=== PATIENT | male | born 1945 | race Caucasian/White ===

== ENCOUNTER 2018-08-19 13:05 | Emergency (ER) | payer BC, MEDICARE ==
[2018-08-19] MEDS ORDERED: Sodium Chloride 0.9% 500 ML IV ONE ×2 (13:59→15:00)
[2018-08-19] MEDS ORDERED: HYDROmorphone 2 MG/ML SDV IVPUSH ONE (14:00)
--- NOTE | 2018-08-19 14:06 | EDM.PDOC ---
ED HPI GENERAL MEDICAL PROBLEM - General Chief Complaint: Genitourinary Problem Stated Complaint: BLOOD IN URINE,LOW BACK PAIN,LEFT LEG PAIN Time Seen by Provider: 08/19/18 14:01 Source of Information: Reports: Patient History Limitations: Reports: No Limitations - History of Present Illness INITIAL COMMENTS - FREE TEXT/NARRATIVE: Presents with progressively worsening left low back pain radiating to left leg with weakness since 08/08/18. Developed hematuria the day prior, but this resolved. Has a h/o kidney stones. Denies N/V. Also has a h/o lumbar disc disease. Onset Date: 08/08/18 Location: Reports: Back Quality: Reports: Dull Severity: Moderate L lower back Pain Score (Numeric/FACES): 6 - Related Data Allergies Allergy/AdvReac Type Severity Reaction Status Date / Time plague vaccine Allergy Cannot Verified 08/19/18 13:46 Remember typhoid vaccine Allergy Cannot Verified 08/19/18 13:46 Remember typhus vaccine Allergy Cannot Verified 08/19/18 13:46 Remember yellow fever vaccine live Allergy Cannot Verified 08/19/18 13:46 Remember Home Meds: Home Meds Acetaminophen/HYDROcodone [[place] 325-5 MG] 1 tab PO Q6H PRN #15 tab 08/19/18 [Rx ] Aspirin [Ecotrin] 325 mg PO DAILY 08/19/18 [History] Carvedilol 12.5 mg BID 08/19/18 [History] Cefuroxime Axetil [Ceftin] 500 mg PO BID #14 tablet 08/19/18 [Rx] Isosorbide Mononitrate [Imdur] 60 mg PO BEDTIME 08/19/18 [History] Isosorbide Mononitrate [Imdur] 120 mg PO DAILY 08/19/18 [History] Lisinopril 20 mg BEDTIME 08/19/18 [History] Niacin [Niacin ER] 500 mg PO BID 08/19/18 [History] Nitroglycerin [Nitrostat] 0.4 mg SL ASDIRECTED PRN 08/19/18 [History] metFORMIN HCl [Metformin HCl] 500 mg BID 08/19/18 [History] predniSONE [Prednisone] 40 mg PO 10 5 Days tablet 08/19/18 [Rx] Past Medical History Cardiovascular History: Reports: Bypass, CAD, Hypertension, [place], Stents Genitourinary History: Reports: Renal Calculus Endocrine/Metabolic History: Reports: Diabetes, Type II - Past Surgical History Cardiovascular Surgical History: Reports: AAA Repair Social & Family History - Tobacco Use Smoking Status *Q: Current Every Day Smoker Tobacco Use Within Last Twelve Months: Cigarettes - Alcohol Use Alcohol Use History: No ED ROS GENERAL - Review of Systems Review Of Systems: See Below Constitutional: Reports: No Symptoms HEENT: Reports: No Symptoms Respiratory: Reports: No Symptoms Cardiovascular: Reports: No Symptoms Endocrine: Reports: No Symptoms GI/Abdominal: Reports: No Symptoms : Reports: Hematuria Musculoskeletal: Reports: Back Pain (left lower) Skin: Reports: No Symptoms Neurological: Reports: Difficulty Walking (left leg weakness, no numbness) Psychiatric: Reports: No Symptoms Hematologic/Lymphatic: Reports: No Symptoms ED EXAM,LOWER BACK PAIN/INJURY - Physical Exam Exam: See Below Exam Limited By: No Limitations General Appearance: Alert, WD/WN, No Apparent Distress Ears: Normal External Exam Throat/Mouth: No Airway Compromise Head: Atraumatic, Normocephalic Neck: Full Range of Motion Respiratory/Chest: No Respiratory Distress, Lungs Clear, Normal Breath Sounds Cardiovascular: Regular Rate, Rhythm, No Murmur GI/Abdominal: Soft, Non-Tender, No Distention Back Exam: Other (Left lower back tenderness). No: CVA Tenderness (R), CVA Tenderness (L) Neurological: Alert, Other (Mild LLE weakness, sensation intact) DTR - Lower Extremities: 1+: Knee (R), 2+: Knee (L) Psychiatric: Normal Affect, Normal Mood Skin Exam: Warm, Dry, Intact Course - Vital Signs Last Recorded V/S: Last Vital Signs Temp 36.3 C 08/19/18 13:33 Pulse 73 08/19/18 15:10 Resp 18 08/19/18 15:10 BP 116/74 08/19/18 15:10 Pulse Ox 100 08/19/18 15:10 - Orders/Labs/Meds Orders: Active Orders 24 hr Category Date Time Status Ang Abdomen [CT] Stat Exams 08/19/18 15:43 Taken Ang Chest [CT] Stat Exams 08/19/18 15:31 Taken CULTURE URINE [RM] Stat Lab 08/19/18 14:14 Received Sodium Chloride 0.9% [Saline Flush] Med 08/19/18 13:59 Active 10 ml FLUSH ASDIRECTED PRN Saline Lock Insert [OM.PC] Routine Oth 08/19/18 13:59 Ordered Medication Orders Sodium Chloride (Saline Flush) 10 ml FLUSH ASDIRECTED PRN PRN Reason: Keep Vein Open Last Admin: 08/19/18 16:42 Dose: 10 ml Admin: 08/19/18 15:06 Dose: 10 ml Labs: Laboratory Tests 08/19/18 08/19/18 08/19/18 Range/Units 14:14 14:17 14:17 WBC 10.2 (4.5-12.0) X10-3/uL RBC 5.05 (4.30-5.75) x10(6)uL Hgb 15.5 (11.5-15.5) g/dL Hct 46.6 (30.0-51.3) % MCV 92.2 (80-96) fL MCH 30.7 (27.7-33.6) pg MCHC 33.3 (32.2-35.4) g/dL RDW 13.7 (11.5-15.5) % Plt Count 195 (125-369) X10(3)uL MPV 8.8 (7.4-10.4) fL Neut % (Auto) 68.6 (46-82) % Lymph % (Auto) 23.0 (13-37) % [place] % (Auto) 4.4 (4-12) % Eos % (Auto) 3 (1.0-5.0) % Baso % (Auto) 1 (0-2) % Neut # (Auto) 7.1 (1.6-8.3) # Lymph # (Auto) 2.3 (0.6-5.0) # [place] # (Auto) 0.4 (0.0-1.3) # Eos # (Auto) 0.3 (0.0-0.8) # Baso # (Auto) 0.1 (0.0-0.2) # PT (8.7-11.1) INR (0.89-1.13) Sodium 138 (135-145) mmol/L Potassium 4.9 (3.5-5.3) mmol/L Chloride 102 (100-110) mmol/L Carbon Dioxide 27 (21-32) mmol/L BUN 29 H (7-18) mg/dL Creatinine 1.4 H (0.70-1.30) mg/dL Est Cr Clr Drug Dosing 49.25 mL/min Estimated GFR (MDRD) 50 L (>60) BUN/Creatinine Ratio 20.7 H (9-20) Glucose 107 (80-116) mg/dL Calcium 9.2 (8.6-10.2) mg/dL Total Bilirubin 0.5 (0.1-1.3) mg/dL AST 21 (5-25) IU/L ALT 15 (12-36) U/L Alkaline Phosphatase 89 (56-112) IU/L Total Protein 7.8 (6.0-8.0) g/dL Albumin 3.6 (3.2-4.6) g/dL Globulin 4.2 g/dL Albumin/Globulin Ratio 0.9 Urine Color Yellow (YELLOW) Urine Appearance Cloudy (CLEAR) Urine pH 8.0 H (5.0-6.5) Ur Specific [place] 1.010 (1.010-1.025) Urine Protein Negative (NEGATIVE) mg/dL Urine Glucose (UA) Normal (NEGATIVE) mg/dL Urine Ketones Negative (NEGATIVE) mg/dL Urine Occult Blood Moderate H (NEGATIVE) Urine Nitrite Negative (NEGATIVE) Urine Bilirubin Negative (NEGATIVE) Urine Urobilinogen Normal (NEGATIVE) mg/dL Ur Leukocyte Esterase Large H (NEGATIVE) Urine RBC 10-20 H (0) Urine WBC 50-75 H (0) Ur Squamous Epith Cells Occasional (NS,R,O) Triple Phos Crystals Moderate H (NS) Urine Bacteria Many H (NS) 08/19/18 Range/Units 14:17 WBC (4.5-12.0) X10-3/uL RBC (4.30-5.75) x10(6)uL Hgb (11.5-15.5) g/dL Hct (30.0-51.3) % MCV (80-96) fL MCH (27.7-33.6) pg MCHC (32.2-35.4) g/dL RDW (11.5-15.5) % Plt Count (125-369) X10(3)uL MPV (7.4-10.4) fL Neut % (Auto) (46-82) % Lymph % (Auto) (13-37) % [place] % (Auto) (4-12) % Eos % (Auto) (1.0-5.0) % Baso % (Auto) (0-2) % Neut # (Auto) (1.6-8.3) # Lymph # (Auto) (0.6-5.0) # [place] # (Auto) (0.0-1.3) # Eos # (Auto) (0.0-0.8) # Baso # (Auto) (0.0-0.2) # PT 9.8 (8.7-11.1) INR 1.01 (0.89-1.13) Sodium (135-145) mmol/L Potassium (3.5-5.3) mmol/L Chloride (100-110) mmol/L Carbon Dioxide (21-32) mmol/L BUN (7-18) mg/dL Creatinine (0.70-1.30) mg/dL Est Cr Clr Drug Dosing mL/min Estimated GFR (MDRD) (>60) BUN/Creatinine Ratio (9-20) Glucose (80-116) mg/dL Calcium (8.6-10.2) mg/dL Total Bilirubin (0.1-1.3) mg/dL AST (5-25) IU/L ALT (12-36) U/L Alkaline Phosphatase (56-112) IU/L Total Protein (6.0-8.0) g/dL Albumin (3.2-4.6) g/dL Globulin g/dL Albumin/Globulin Ratio Urine Color (YELLOW) Urine Appearance (CLEAR) Urine pH (5.0-6.5) Ur Specific [place] (1.010-1.025) Urine Protein (NEGATIVE) mg/dL Urine Glucose (UA) (NEGATIVE) mg/dL Urine Ketones (NEGATIVE) mg/dL Urine Occult Blood (NEGATIVE) Urine Nitrite (NEGATIVE) Urine Bilirubin (NEGATIVE) Urine Urobilinogen (NEGATIVE) mg/dL Ur Leukocyte Esterase (NEGATIVE) Urine RBC (0) Urine WBC (0) Ur Squamous Epith Cells (NS,R,O) Triple Phos Crystals (NS) Urine Bacteria (NS) Meds: Medications Generic Name Dose Route Start Last Admin Trade Name Freq PRN Reason Stop Dose Admin Sodium Chloride 10 ml 08/19/18 13:59 08/19/18 16:42 Saline Flush FLUSH 10 ml ASDIRECTED PRN Administration Keep Vein Open Discontinued Medications Generic Name Dose Route Start Last Admin Trade Name Venessa PRN Reason Stop Dose Admin Ceftriaxone Sodium 1,000 mg 08/19/18 15:51 08/19/18 16:39 Rocephin IVPUSH 08/19/18 15:52 1,000 mg ONETIME ONE Administration Hydromorphone HCl 0.5 mg 08/19/18 14:00 Dilaudid IVPUSH 08/19/18 14:01 ONETIME ONE Sodium Chloride 500 mls @ 500 mls/hr 08/19/18 13:59 08/19/18 15:09 Normal Saline IV 08/19/18 14:58 Not Given .BOLUS ONE Sodium Chloride 500 mls @ 500 mls/hr 08/19/18 15:00 08/19/18 15:00 Normal Saline IV 08/19/18 15:59 500 mls/hr .BOLUS ONE Administration Iopamidol 100 ml 08/19/18 15:49 08/19/18 16:14 Isovue-370 (76%) IV 08/19/18 15:50 98 ml . DIRECTED ONE Administration - Radiology Interpretation Free Text/Narrative:: CT Abd/Pelvis w/o contrast: No ureteral calculi or obstructive uropathy. CTA Aorta: Increased diameter of AAA to 45mm (compared to [address]mm [address]), no rupture or dissection. Graft is kinked. There is flow distally to the right external iliac, right external iliac is occluded (no change 2008). - Re-Assessments/Exams Free Text/Narrative Re-Assessment/Exam: 08/19/18 17:[address] Torrez ([facility] Vascular Surgeon), recommends outpatient follow up at the [facility] within 1 week. Departure - Departure Time of Disposition: 17:39 Disposition: Home, Self-Care 01 Condition: Good Clinical Impression: UTI, Urinary tract infectious disease, Sciatica of left side Abdominal aortic aneurysm Qualifiers: Presence of rupture: without rupture Qualified Code(s): I71.4 - Abdominal aortic aneurysm, without rupture - Discharge Information *PRESCRIPTION DRUG MONITORING PROGRAM REVIEWED*: Yes *COPY OF PRESCRIPTION DRUG MONITORING REPORT IN PATIENT AURA: Not Applicable Prescriptions: Acetaminophen/HYDROcodone [[place] 325-5 MG] 1 tab PO Q6H PRN #15 tab PRN Reason: Pain Cefuroxime Axetil [Ceftin] 500 mg PO BID #14 tablet predniSONE [Prednisone] 40 mg PO 10 5 Days tablet Instructions: Abdominal Aortic Aneurysm, [id number], Sciatica, Urinary Tract Infection, Adult, [id number] Referrals: Luis Felipe Escobar MD [Primary Care Provider] - Forms: ED Department Discharge Additional Instructions: Hold Glucophage for 48 hours. Follow up at [facility] in 1 week. Fill prescriptions for [place], Ceftin, and Prednisone and take as directed. Follow up with your primary physician in 2-3 days. Return to the ER if symptoms worsen. - My Orders Last 24 Hours: My Active Orders 08/19/18 13:59 Sodium Chloride 0.9% [Saline Flush] 10 ml FLUSH ASDIRECTED PRN Saline Lock Insert [OM.PC] Routine 08/19/18 14:14 CULTURE URINE [RM] Stat 08/19/18 15:31 Ang Chest [CT] Stat 08/19/18 15:43 Ang Abdomen [CT] Stat - Assessment/Plan Last 24 Hours: My Active Orders 08/19/18 13:59 Sodium Chloride 0.9% [Saline Flush] 10 ml FLUSH ASDIRECTED PRN Saline Lock Insert [OM.PC] Routine 08/19/18 14:14 CULTURE URINE [RM] Stat 08/19/18 15:31 Ang Chest [CT] Stat 08/19/18 15:43 Ang Abdomen [CT] Stat
[2018-08-19] MEDS: Sodium Chloride 0.9% 10 ML Syringe FLUSH PRN ×2 (15:06→16:42)
--- NOTE | 2018-08-19 15:45 | CT ---
INDICATION: Back pain, hematuria. CT ABDOMEN AND PELVIS WITHOUT CONTRAST: Spiral 1.25 mm axial sections were obtained through the abdomen and pelvis with sagittal and coronal reconstructions with renal calculus protocol. Examination was obtained 2017 - no comparisons are available. Total exam DLP = 985.12 mGy-cm. Lower lung anderson and pleural spaces visualized appeared normal. The heart appeared mildly enlarged. Coronary artery calcifications are noted. Tiny low density lesions in the liver likely are benign cystic structures. Punctate calcifications in the liver likely represent evidence of previous histoplasmosis. No gallstones were demonstrated. An abdominal aortic aneurysm measuring 4.8 cm is noted with aortoiliac bypass graft in place. No definite leakage is seen. Contrast enhanced examination may be warranted for further evaluation, as felt to be clinically necessary. Calcifications are fairly extensive in the arterial system. Renal cortical scarring is noted, mild on the right, severe on the left, with marked thinning of the renal cortex on the left, producing an atretic appearance of the left kidney. Multiple calculi are noted in both kidneys, much more prominently on the left but without definite obstructive uropathy. Iodinated contrast examination may be helpful for further evaluation, as felt to be clinically necessary in this patient with hematuria. No definite bladder lesion was seen, although thickening of the urinary bladder wall could be on the basis of cystitis or trabeculation. Degenerative changes and disk disease are noted at L2 through S1, least prominently at L2-3 with bulging disks most notable at L3-4, L4-5, and L5-S1, the latter two more prominently. Narrowing of neural foramina at those levels is seen up to the L4-5 neural foramen level. Herniated nucleus pulposus could be present at the L4-5 level centrally and to the left, impinging on the nerve root exiting on the left at L4-5. There is a moderate dextroconcave scoliosis of the lumbar spine. Degenerative changes are noted at the right hip joint of moderate degree with joint space narrowing craniolaterally and medially. Sigmoid diverticulosis is noted without definite evidence of diverticulitis. No evidence of bowel obstruction or free air was seen. The appendix appeared normal and is visualized on axial images #226 through # 260. The liver showed multiple tiny low density lesions likely representing tiny cystic structures. This should be correlated clinically, however. Punctate calcifications in the liver likely represent previous granulomatous disease. Calcific or metallic densities around the gastric body are noted, etiology indeterminate, question postsurgical change. The presence of calcifications is noted in the aorta, superior mesenteric artery, renal arteries, iliac and femoral arteries. IMPRESSION: 1. Aortic aneurysm with stenting. 2. Renal calcinosis, most severe on the left with renal cortical scarring much more severe on the left. Atretic appearing left kidney but no definite obstructive uropathy. 3. Degenerative changes, disk disease, scoliosis, narrowing of neural foramina in lumbosacral spine, as noted above, with bulging disks most prominent at L4-5 , L5-S1. Herniated nucleus pulposus could be present at the L4-5 level centrally and to the left, impinging on the nerve root exiting on the left at L4 -5. Report was called to Dr. Wright at 1520 hours on 08/19/2018. [facility]
[2018-08-19] MEDS ORDERED: Iopamidol 755 Mg/ML 100 ML Bottle IV ONE (15:49)
[2018-08-19] MEDS ORDERED: cefTRIAXone 1,000 MG VIAL IVPUSH ONE (15:51)
[2018-08-19] MEDS ORDERED: predniSONE 20 MG Tab PO ONE (17:46)
--- NOTE | 2018-08-20 10:28 | CT ---
INDICATION: Back pain. COMPUTERIZED TOMOGRAPHY ANGIOGRAPHY OF THE CHEST FOR AORTA: TECHNIQUE: Spiral 1.25 mm axial sections were obtained through the chest, abdomen, and most of the pelvis with sagittal and coronal reconstructions, 08/19. No comparisons were available at the time of dictation. Total exam DLP = 1,232.37 mGy-cm. FINDINGS: Examination of the chest by CT with contrast, as noted above, reveals extensive atherosclerotic changes in the aorta with irregular plaque, some of it calcified. There may be ulcerations with marked irregularity present. Along the ascending aorta on axial image #64, sagittal image #65, and coronal image #66, there is suggestion of a limited area of dissection apparently into the plaque in that area. Another minimal area of dissection, most likely in an ulcer, is seen along the posterior proximal abdominal aorta on axial images #135 through #137. The heart is enlarged with coronary artery disease. An active infiltrate or effusion was not identified in the lungs. No mediastinal mass was identified. No pericardial effusion was seen. Mediastinal lymphadenopathy is mild and nonspecific. IMPRESSION: 1. Two areas of possible minimal dissection are noted, one in the ascending and one in the distal descending thoracic aorta. 2. Diffuse atherosclerotic changes. No thoracic aortic aneurysm. Ulcerations in plaques may be present. Report was given in person to Dr. Wright at 1710 hours on 08/19/2018. [facility]
--- NOTE | 2018-08-20 10:47 | CT ---
INDICATION: Abdominal pain. COMPUTERIZED TOMOGRAPHY ANGIOGRAPHY OF THE ABDOMEN AND UPPER TWO THIRDS OF THE PELVIS FOR AORTA: TECHNIQUE: Spiral 1.25 mm axial sections were obtained through the chest, abdomen, and most of the pelvis with sagittal and coronal reconstructions, 08/19. No comparisons were available at the time of dictation. Total exam DLP = 1,232.37 mGy-cm. FINDINGS: Examination of the abdomen and upper two thirds of the pelvis was obtained by CT with contrast, as noted above, and revealed an area of aneurysmal dilatation of the aorta, extending from the renal arteries inferiorly to the bifurcation, measuring approximately 13 cm craniocaudad by approximately 40 mm anterior-posterior. There is a bypass stent, which appears to be functioning, from the midportion of the aneurysm and extending into the common iliac on the right. It appears to be fully patent on the right. The left common iliac artery is not contrast-enhancing, suggesting obstruction at the bifurcation of the left common iliac artery. An area of aneurysmal dilatation extends above the stent approximately 49 mm craniocaudad to the renal arteries. The right renal artery shows evidence of narrowing of moderate to moderately severe degree near its origin. What appears to be a left renal artery also shows evidence of stenosis with relatively minimal flow to the left kidney. No definite dissection or leakage is identified at the aneurysm or stent site. Comparison studies were obtained from [facility] dated 05/18/2009 and now show aneurysmal dilatation of the aorta above the level of the previously stented aneurysm, extending more cranially to the level of the renal arteries. The aneurysm ends at that point. The graft also appears to have lost its tether at its proximal-most end, and its proximal-most portion is now located approximately 52 mm from the right renal artery versus approximately 9.8 mm from the renal artery on the previous study of 2008. Contrast bulges into the mural thrombus - plaque on the left. IMPRESSION: Aortic aneurysm stented on previous CT scan of 2008. The aneurysm has increased in size. The stent has apparently dislodged. It remains patent, however, with flow into the common iliac on the right. Ulcerations in plaques. No definite leakage or dissection identified. There is , however, noted occlusion of the common iliac on the left proximally. Report was given in person to Dr. Wright at 1710 hours on 08/19/2018. [facility]
== END 2018-08-19 18:02 | disposition home or self-care (01) ==
LOC: FB.ED 13:05
DX: N39.0 Urinary tract infection, site not specified (principal); M54.42 Lumbago with sciatica, left side; I71.4 Abdominal aortic aneurysm, without rupture; E11.9 Type 2 diabetes mellitus without complications; I10 Essential (primary) hypertension; F17.210 Nicotine dependence, cigarettes, uncomplicated; I25.2 Old myocardial infarction; Z88.7 Allergy status to serum and vaccine
CPT/HCPCS: 71275; 74175; 74176; 80053; 81001; 85025; 85610; 87086; 87088; 87186; 96361; 96374; 99283; A9270-GY; J0696; J7030; J7050; Q9967

== ENCOUNTER 2025-03-15 14:57 | Inpatient (IN) | payer MEDICARE ==
[2025-03-15 15:43] LABS: BASOPHILS PERCENT AUTO 0.4 % (0.3-3.8); EOSINOPHILS PERCENT AUTO 0.1 % (0.1-6.8); HEMATOCRIT 43.5 % (38.3-50.1); HEMOGLOBIN 14.5 g/dL (12.9-17.7); LYMPHOCYTES ABSOLUTE AUTO 1.1 x10-3/uL (0.5-4.5); LYMPHOCYTES PERCENT AUTO 10.5 % (15.8-45.3); MEAN CORPUSCULAR HEMOGLOBIN 30.3 pg (27.0-33.3); MEAN CORPUSCULAR HGB CONC 33.4 g/dL (28.7-35.3); MEAN CORPUSCULAR VOLUME 90.9 fL (80.8-98.7); MEAN PLATELET VOLUME 8.9 fL (6.7-11.0); MONOCYTES ABSOLUTE AUTO 0.7 x10-3/uL (0.0-1.2); MONOCYTES PERCENT AUTO 6.6 % (5.5-15.2); NEUTROPHILS ABSOLUTE AUTO 8.5 x10-3/uL (1.7-6.9); NEUTROPHILS PERCENT AUTO 82.4 % (40.3-71.8); PLATELET COUNT,PLT 159 x10(3)uL (117-477); RED BLOOD CELL COUNT 4.79 x10(6)uL (3.90-5.90); RED CELL DISTRIBUTION WIDTH 16.2 % (12.4-15.0); WHITE BLOOD CELL COUNT,WBC 10.3 x10-3/uL (3.2-10.1)
[2025-03-15 15:44] LABS: BLOOD UREA NITROGEN,BUN 49 mg/dL (7-18); BUN/CREATININE RATIO 32.7 (9-20); CALCIUM 9.2 mg/dL (8.6-10.2); CARBON DIOXIDE,CO2 21 mmol/L (21-32); CHLORIDE,CL 104 mmol/L (100-110); CREATININE 1.5 mg/dL (0.70-1.30); ESTIMATED GFR 47 mL/min (>60); GLUCOSE RANDOM 106 mg/dL (80-116); POTASSIUM,K 4.6 mmol/L (3.5-5.3); SODIUM,NA 141 mmol/L (135-145)
[2025-03-15 15:50] LABS: ALANINE AMINOTRANSFERASE,ALT 31 U/L (12-36); ALBUMIN 3.5 g/dL (3.2-4.6); ALKALINE PHOSPHATASE 98 IU/L (56-112); ASPARTATE AMNIOTRANSFERASE,AST 40 IU/L (5-25); BILIRUBIN TOTAL 1.1 mg/dL (0.1-1.3); PROTEIN TOTAL,TP 7.1 g/dL (6.0-8.0)
[2025-03-15 15:51] LABS: INR 1.14 (1.00-1.24); PROTHROMBIN TIME 11.7 sec (9.0-11.1)
[2025-03-15] MEDS: Sodium Chloride 0.9% 1,000 ML IV ONE (15:51)
[2025-03-15 15:54] LABS: PTT,PARTIAL THROMBOPLSTIN TIME 27.6 SECONDS (24.4-33.2)
[2025-03-15 16:45] LABS: INFLUENZA A NAA NEGATIVE (NEGATIVE); INFLUENZA B NAA NEGATIVE (NEGATIVE); RESPIRATORY SYNCYTIAL VIR NAA NEGATIVE (NEGATIVE)
[2025-03-15 16:49] LABS: CORONAVIRUS COVID-19 NAA NEGATIVE (NEGATIVE)
[2025-03-15 16:56] LABS: BILIRUBIN,URINE NEGATIVE (NEGATIVE); GLUCOSE,URINE NORMAL (NORMAL); KETONES,URINE 50 mg/dL (NEGATIVE); LEUKOCYTE ESTERASE,URINE LARGE (NEGATIVE); NITRITE,URINE POSITIVE (NEGATIVE); OCCULT BLOOD,URINE LARGE (NEGATIVE); PROTEIN,URINE TRACE mg/dL (NEGATIVE); UROBILINOGEN,URINE 1 mg/dL (NEGATIVE)
[2025-03-15 17:04] LABS: COLOR,URINE YELLOW (YELLOW)
[2025-03-15 17:05] LABS: APPEARANCE,URINE CLOUDY (CLEAR); BACTERIA,URINE MANY (NS); RBC,URINE 20-30 (0-5); SQUAMOUS EPITHELIAL CELLS,UR OCCASIONAL (NS,R,O); WBC,URINE 30-40 (0-5)
[2025-03-15] MEDS: Ampicillin/Sulbactam Na 3 GM in Sodium Chloride 0.9% 100 ML IV ONE (18:07)
[2025-03-15] MEDS ORDERED: Melatonin 3 MG Tab PO PRN (18:08)
[2025-03-15] MEDS ORDERED: Acetaminophen 325 MG Tab PO PRN (18:08)
[2025-03-15] MEDS ORDERED: Magnesium Hydroxide 400 MG/5 ML Susp 30 ML Cup PO PRN (18:08)
[2025-03-15] MEDS ORDERED: Ondansetron 4 MG/2 ML SDV IV PRN (18:08)
[2025-03-15] MEDS: Dextrose 5%-0.45% NaCl 1,000 ML IV SCH (21:12)
[2025-03-15] MEDS: Carvedilol 12.5 MG Tab PO SCH (22:15)
[2025-03-15] MEDS: Enoxaparin 40 MG/0.4 ML Syringe SUBCUT SCH (22:16)
[2025-03-16] MEDS: Ampicillin/Sulbactam Na 3 GM in Sodium Chloride 0.9% 100 ML IV SCH ×2 (00:18)
[2025-03-16 06:47] LABS: BASOPHILS PERCENT AUTO 0.7 % (0.3-3.8); EOSINOPHILS ABSOLUTE AUTO 0.2 x10-3/uL (0.0-0.6); EOSINOPHILS PERCENT AUTO 2.8 % (0.1-6.8); HEMATOCRIT 34.4 % (38.3-50.1); HEMOGLOBIN 11.6 g/dL (12.9-17.7); LYMPHOCYTES ABSOLUTE AUTO 1.4 x10-3/uL (0.5-4.5); LYMPHOCYTES PERCENT AUTO 18.3 % (15.8-45.3); MEAN CORPUSCULAR HEMOGLOBIN 30.5 pg (27.0-33.3); MEAN CORPUSCULAR HGB CONC 33.7 g/dL (28.7-35.3); MEAN CORPUSCULAR VOLUME 90.3 fL (80.8-98.7); MEAN PLATELET VOLUME 8.3 fL (6.7-11.0); MONOCYTES ABSOLUTE AUTO 0.5 x10-3/uL (0.0-1.2); MONOCYTES PERCENT AUTO 6.4 % (5.5-15.2); NEUTROPHILS ABSOLUTE AUTO 5.3 x10-3/uL (1.7-6.9); NEUTROPHILS PERCENT AUTO 71.8 % (40.3-71.8); PLATELET COUNT,PLT 117 x10(3)uL (117-477); RED BLOOD CELL COUNT 3.81 x10(6)uL (3.90-5.90); RED CELL DISTRIBUTION WIDTH 15.6 % (12.4-15.0); WHITE BLOOD CELL COUNT,WBC 7.4 x10-3/uL (3.2-10.1)
[2025-03-16 06:50] LABS: BLOOD UREA NITROGEN,BUN 44 mg/dL (7-18); BUN/CREATININE RATIO 27.5 (9-20); CALCIUM 8.3 mg/dL (8.6-10.2); CARBON DIOXIDE,CO2 26 mmol/L (21-32); CHLORIDE,CL 108 mmol/L (100-110); CREATININE 1.6 mg/dL (0.70-1.30); EST CRCL DRUG DOSING (CG) 35.16 mL/min; ESTIMATED GFR 44 mL/min (>60); GLUCOSE RANDOM 143 mg/dL (80-116); POTASSIUM,K 3.9 mmol/L (3.5-5.3); SODIUM,NA 143 mmol/L (135-145)
[2025-03-16] MEDS ORDERED: Aspirin 325 MG Tab.EC PO SCH (09:00)
[2025-03-16] MEDS: Aspirin 81 MG Tab.EC PO SCH (09:54)
[2025-03-17 06:38] LABS: BASOPHILS ABSOLUTE AUTO 0.1 x10-3/uL (0.0-0.3); BASOPHILS PERCENT AUTO 0.7 % (0.3-3.8); EOSINOPHILS ABSOLUTE AUTO 0.2 x10-3/uL (0.0-0.6); HEMATOCRIT 32.8 % (38.3-50.1); HEMOGLOBIN 11.1 g/dL (12.9-17.7); LYMPHOCYTES ABSOLUTE AUTO 1.6 x10-3/uL (0.5-4.5); LYMPHOCYTES PERCENT AUTO 23.3 % (15.8-45.3); MEAN CORPUSCULAR HEMOGLOBIN 30.2 pg (27.0-33.3); MEAN CORPUSCULAR HGB CONC 33.7 g/dL (28.7-35.3); MEAN CORPUSCULAR VOLUME 89.6 fL (80.8-98.7); MEAN PLATELET VOLUME 8.4 fL (6.7-11.0); MONOCYTES ABSOLUTE AUTO 0.5 x10-3/uL (0.0-1.2); MONOCYTES PERCENT AUTO 6.7 % (5.5-15.2); NEUTROPHILS ABSOLUTE AUTO 4.6 x10-3/uL (1.7-6.9); NEUTROPHILS PERCENT AUTO 66.3 % (40.3-71.8); PLATELET COUNT,PLT 108 x10(3)uL (117-477); RED CELL DISTRIBUTION WIDTH 16.3 % (12.4-15.0)
[2025-03-17 06:45] LABS: BLOOD UREA NITROGEN,BUN 33 mg/dL (7-18); BUN/CREATININE RATIO 23.6 (9-20); CALCIUM 7.9 mg/dL (8.6-10.2); CARBON DIOXIDE,CO2 26 mmol/L (21-32); CHLORIDE,CL 108 mmol/L (100-110); CREATININE 1.4 mg/dL (0.70-1.30); EST CRCL DRUG DOSING (CG) 42.62 mL/min; ESTIMATED GFR 51 mL/min (>60); GLUCOSE RANDOM 129 mg/dL (80-116); POTASSIUM,K 3.5 mmol/L (3.5-5.3); SODIUM,NA 142 mmol/L (135-145)
[2025-03-17 06:57] LABS: RED BLOOD CELL COUNT 3.66 x10(6)uL (3.90-5.90)
[2025-03-17] MEDS ORDERED: Albuterol/Ipratropium 3.0-0.5 MG/3 ML Neb Soln NEB PRN (08:45)
[2025-03-18] MEDS: Sodium Chloride 0.9% 10 ML Syringe FLUSH PRN (00:10)
[2025-03-18 06:43] LABS: BASOPHILS PERCENT AUTO 0.6 % (0.3-3.8); EOSINOPHILS ABSOLUTE AUTO 0.2 x10-3/uL (0.0-0.6); EOSINOPHILS PERCENT AUTO 2.9 % (0.1-6.8); HEMATOCRIT 32.8 % (38.3-50.1); HEMOGLOBIN 11.2 g/dL (12.9-17.7); LYMPHOCYTES ABSOLUTE AUTO 1.5 x10-3/uL (0.5-4.5); LYMPHOCYTES PERCENT AUTO 23.1 % (15.8-45.3); MEAN CORPUSCULAR HEMOGLOBIN 30.6 pg (27.0-33.3); MEAN CORPUSCULAR HGB CONC 34.2 g/dL (28.7-35.3); MEAN CORPUSCULAR VOLUME 89.4 fL (80.8-98.7); MEAN PLATELET VOLUME 8.4 fL (6.7-11.0); MONOCYTES ABSOLUTE AUTO 0.5 x10-3/uL (0.0-1.2); MONOCYTES PERCENT AUTO 7.2 % (5.5-15.2); NEUTROPHILS ABSOLUTE AUTO 4.2 x10-3/uL (1.7-6.9); NEUTROPHILS PERCENT AUTO 66.2 % (40.3-71.8); PLATELET COUNT,PLT 106 x10(3)uL (117-477); RED CELL DISTRIBUTION WIDTH 16.4 % (12.4-15.0); WHITE BLOOD CELL COUNT,WBC 6.4 x10-3/uL (3.2-10.1)
[2025-03-18 06:57] LABS: RED BLOOD CELL COUNT 3.67 x10(6)uL (3.90-5.90)
[2025-03-18 07:00] LABS: BLOOD UREA NITROGEN,BUN 29 mg/dL (7-18); BUN/CREATININE RATIO 20.7 (9-20); CALCIUM 8.3 mg/dL (8.6-10.2); CARBON DIOXIDE,CO2 27 mmol/L (21-32); CHLORIDE,CL 108 mmol/L (100-110); CREATINE KINASE,CK 115 IU/L (60-160); CREATININE 1.4 mg/dL (0.70-1.30); EST CRCL DRUG DOSING (CG) 42.71 mL/min; ESTIMATED GFR 51 mL/min (>60); GLUCOSE RANDOM 105 mg/dL (80-116); POTASSIUM,K 3.7 mmol/L (3.5-5.3); SODIUM,NA 145 mmol/L (135-145)
[2025-03-18 07:02] LABS: TROPONIN I 54.8 pg/mL (4.0-60.3)
[2025-03-18 07:06] LABS: C-REACTIVE PROTEIN 4.06 mg/dL (<0.50)
== END 2025-03-18 14:00 | disposition swing bed (61) | DRG 683 ==
LOC: FB.ED 14:57 → FB.MS 18:00
PROVIDERS: ADMIT Family Medicine; ATTEND Family Medicine
DX: N17.9 Acute kidney failure, unspecified (principal); N39.0 Urinary tract infection, site not specified; R53.1 Weakness; E87.20 Acidosis, unspecified; R82.4 Acetonuria; M62.82 Rhabdomyolysis; R39.2 Extrarenal uremia; R79.82 Elevated C-reactive protein (CRP); D72.829 Elevated white blood cell count, unspecified; I13.0 Hypertensive heart and chronic kidney disease with heart failure and stage 1 through stage 4 chronic kidney disease, or unspecified chronic kidney disease; N30.90 Cystitis, unspecified without hematuria; L85.9 Epidermal thickening, unspecified; I63.81 Other cerebral infarction due to occlusion or stenosis of small artery; I10 Essential (primary) hypertension; I25.810 Atherosclerosis of coronary artery bypass graft(s) without angina pectoris; E11.9 Type 2 diabetes mellitus without complications; J44.9 Chronic obstructive pulmonary disease, unspecified; F17.210 Nicotine dependence, cigarettes, uncomplicated; I73.9 Peripheral vascular disease, unspecified; I25.10 Atherosclerotic heart disease of native coronary artery without angina pectoris; I50.9 Heart failure, unspecified; E11.51 Type 2 diabetes mellitus with diabetic peripheral angiopathy without gangrene; E11.22 Type 2 diabetes mellitus with diabetic chronic kidney disease; N18.9 Chronic kidney disease, unspecified; I48.91 Unspecified atrial fibrillation; G83.81 Brown-Sequard syndrome; E53.8 Deficiency of other specified B group vitamins; E86.0 Dehydration; F15.90 Other stimulant use, unspecified, uncomplicated; I45.10 Unspecified right bundle-branch block; Z79.1 Long term (current) use of non-steroidal anti-inflammatories (NSAID); Z79.84 Long term (current) use of oral hypoglycemic drugs; Z88.7 Allergy status to serum and vaccine; Z79.899 Other long term (current) drug therapy; Z79.82 Long term (current) use of aspirin; I25.2 Old myocardial infarction; Z98.49 Cataract extraction status, unspecified eye; Z98.890 Other specified postprocedural states; Z95.5 Presence of coronary angioplasty implant and graft; Z79.51 Long term (current) use of inhaled steroids; Z87.440 Personal history of urinary (tract) infections; Z87.81 Personal history of (healed) traumatic fracture
CPT/HCPCS: 0241U; 36415; 70450; 71045; 72131; 80048; 80053; 81001; 82550; 83605; 83880; 84484; 85025; 85610; 85730; 86140; 87040; 87086; 87088; 87186; 93005; 93010; 94150; 96360; 97161-GP; 97165-GO; 97535-GO; 99285; 99285-25; A9270-GY; J0295; J1650; J7030

== ENCOUNTER 2025-03-18 14:00 | Inpatient (IN) | payer MEDICARE ==
[2025-03-18] MEDS: Enoxaparin 40 MG/0.4 ML Syringe SUBCUT SCH (20:25)
[2025-03-19] MEDS: Aspirin 81 MG Tab.EC PO SCH (10:43)
[2025-03-19] MEDS: Lisinopril 20 MG Tab PO SCH (10:43)
[2025-03-20 07:27] LABS: HEMOGLOBIN A1C 6.1 % (<5.7)
[2025-03-20 07:29] LABS: BASOPHILS PERCENT AUTO 0.4 % (0.3-3.8); EOSINOPHILS ABSOLUTE AUTO 0.3 x10-3/uL (0.0-0.6); EOSINOPHILS PERCENT AUTO 4.3 % (0.1-6.8); HEMATOCRIT 34.7 % (38.3-50.1); HEMOGLOBIN 11.5 g/dL (12.9-17.7); LYMPHOCYTES ABSOLUTE AUTO 1.6 x10-3/uL (0.5-4.5); LYMPHOCYTES PERCENT AUTO 24.8 % (15.8-45.3); MEAN CORPUSCULAR HEMOGLOBIN 30.6 pg (27.0-33.3); MEAN CORPUSCULAR HGB CONC 33.1 g/dL (28.7-35.3); MEAN CORPUSCULAR VOLUME 92.6 fL (80.8-98.7); MEAN PLATELET VOLUME 9.2 fL (6.7-11.0); MONOCYTES ABSOLUTE AUTO 0.5 x10-3/uL (0.0-1.2); MONOCYTES PERCENT AUTO 7.6 % (5.5-15.2); NEUTROPHILS ABSOLUTE AUTO 4.1 x10-3/uL (1.7-6.9); NEUTROPHILS PERCENT AUTO 62.9 % (40.3-71.8); PLATELET COUNT,PLT 150 x10(3)uL (117-477); RED BLOOD CELL COUNT 3.75 x10(6)uL (3.90-5.90); WHITE BLOOD CELL COUNT,WBC 6.4 x10-3/uL (3.2-10.1)
[2025-03-20 07:33] LABS: BLOOD UREA NITROGEN,BUN 24 mg/dL (7-18); BUN/CREATININE RATIO 18.5 (9-20); CALCIUM 8.4 mg/dL (8.6-10.2); CARBON DIOXIDE,CO2 28 mmol/L (21-32); CHLORIDE,CL 106 mmol/L (100-110); CREATININE 1.3 mg/dL (0.70-1.30); EST CRCL DRUG DOSING (CG) 45.82 mL/min; ESTIMATED GFR 56 mL/min (>60); GLUCOSE RANDOM 100 mg/dL (80-116); POTASSIUM,K 3.8 mmol/L (3.5-5.3); SODIUM,NA 141 mmol/L (135-145)
[2025-03-20] MEDS: Furosemide 20 MG Tab PO SCH (13:52)
[2025-03-20] MEDS ORDERED: Melatonin 3 MG Tab PO PRN (22:22)
[2025-03-21] MEDS: Acetaminophen 325 MG Tab PO ONE (18:17)
[2025-03-21] MEDS: Acetaminophen/HYDROcodone 325-5 MG Tab PO ONE (21:27)
== END 2025-03-21 21:40 | DRG 689 ==
LOC: FB.MS 14:00
PROVIDERS: ADMIT Family Medicine; ATTEND Internal Medicine
DX: N39.0 Urinary tract infection, site not specified (principal); I63.81 Other cerebral infarction due to occlusion or stenosis of small artery; S72.012A Unspecified intracapsular fracture of left femur, initial encounter for closed fracture; M62.82 Rhabdomyolysis; N17.9 Acute kidney failure, unspecified; R53.1 Weakness; I48.91 Unspecified atrial fibrillation; I25.10 Atherosclerotic heart disease of native coronary artery without angina pectoris; J44.9 Chronic obstructive pulmonary disease, unspecified; E53.8 Deficiency of other specified B group vitamins; I25.2 Old myocardial infarction; I12.9 Hypertensive chronic kidney disease with stage 1 through stage 4 chronic kidney disease, or unspecified chronic kidney disease; I50.9 Heart failure, unspecified; M48.061 Spinal stenosis, lumbar region without neurogenic claudication; R79.89 Other specified abnormal findings of blood chemistry; N18.9 Chronic kidney disease, unspecified; J43.1 Panlobular emphysema; E11.9 Type 2 diabetes mellitus without complications; E11.42 Type 2 diabetes mellitus with diabetic polyneuropathy; E11.51 Type 2 diabetes mellitus with diabetic peripheral angiopathy without gangrene; N20.0 Calculus of kidney; G83.81 Brown-Sequard syndrome; I73.9 Peripheral vascular disease, unspecified; Z88.8 Allergy status to other drugs, medicaments and biological substances; Z79.82 Long term (current) use of aspirin; Z79.899 Other long term (current) drug therapy; Z72.0 Tobacco use; Z95.5 Presence of coronary angioplasty implant and graft; Z98.49 Cataract extraction status, unspecified eye; Z98.890 Other specified postprocedural states
CPT/HCPCS: 36415; 73502-LT; 80048; 83036; 83880; 84484; 85025; 93005; 93010; 97530-GP; 97535-GO; 99305; 99309; 99316; A9270-GY; J1650

== ENCOUNTER 2025-04-01 11:13 | Inpatient (IN) | payer MEDICARE ==
[2025-04-01] MEDS ORDERED: Nitroglycerin 0.4 MG Tab.SL SL PRN (14:23)
[2025-04-01] MEDS: oxyCODONE 5 MG Tab PO PRN (17:01)
[2025-04-01] MEDS: metFORMIN 500 MG Tab PO SCH (17:52)
[2025-04-01] MEDS: atorvaSTATin 20 MG Tab PO SCH (20:34)
[2025-04-01] MEDS: Isosorbide Mononitrate 30 MG Tab.ER PO SCH (20:34)
[2025-04-01] MEDS: Enoxaparin 40 MG/0.4 ML Syringe SUBCUT ONE (20:35)
[2025-04-02] MEDS: Folic Acid 1 MG Tab PO SCH (08:34)
[2025-04-02] MEDS: Isosorbide Mononitrate 30 MG Tab.ER PO SCH (08:35)
[2025-04-02] MEDS: Cyanocobalamin (Vitamin B12) 500 MCG Tab PO SCH (08:35)
[2025-04-02] MEDS: Aspirin 81 MG Tab.EC PO SCH (08:35)
[2025-04-02] MEDS: Apixaban 5 MG Tab PO SCH (08:35)
[2025-04-03] MEDS: Levofloxacin/Dextrose 5%-Water 500 MG in Premix Bag 1 BAG IV ONE (02:06)
[2025-04-03 11:42] LABS: BASOPHILS PERCENT AUTO 0.3 % (0.3-3.8); EOSINOPHILS PERCENT AUTO 0.1 % (0.1-6.8); HEMATOCRIT 27.2 % (38.3-50.1); HEMOGLOBIN 9.1 g/dL (12.9-17.7); LYMPHOCYTES ABSOLUTE AUTO 1.2 x10-3/uL (0.5-4.5); LYMPHOCYTES PERCENT AUTO 11.2 % (15.8-45.3); MEAN CORPUSCULAR HEMOGLOBIN 30.6 pg (27.0-33.3); MEAN CORPUSCULAR HGB CONC 33.7 g/dL (28.7-35.3); MEAN CORPUSCULAR VOLUME 90.9 fL (80.8-98.7); MEAN PLATELET VOLUME 8.1 fL (6.7-11.0); MONOCYTES ABSOLUTE AUTO 0.6 x10-3/uL (0.0-1.2); NEUTROPHILS ABSOLUTE AUTO 8.9 x10-3/uL (1.7-6.9); NEUTROPHILS PERCENT AUTO 82.4 % (40.3-71.8); PLATELET COUNT,PLT 220 x10(3)uL (117-477); RED CELL DISTRIBUTION WIDTH 17.6 % (12.4-15.0); WHITE BLOOD CELL COUNT,WBC 10.8 x10-3/uL (3.2-10.1)
[2025-04-03 11:56] LABS: A/G RATIO 0.7; ALANINE AMINOTRANSFERASE,ALT 15 U/L (12-36); ALBUMIN 2.4 g/dL (3.2-4.6); ALKALINE PHOSPHATASE 78 IU/L (56-112); ASPARTATE AMNIOTRANSFERASE,AST 21 IU/L (5-25); BILIRUBIN TOTAL 0.9 mg/dL (0.1-1.3); BLOOD UREA NITROGEN,BUN 33 mg/dL (7-18); BUN/CREATININE RATIO 23.6 (9-20); CALCIUM 8.5 mg/dL (8.6-10.2); CARBON DIOXIDE,CO2 27 mmol/L (21-32); CHLORIDE,CL 106 mmol/L (100-110); CREATININE 1.4 mg/dL (0.70-1.30); EST CRCL DRUG DOSING (CG) 38.13 mL/min; ESTIMATED GFR 51 mL/min (>60); GLUCOSE RANDOM 147 mg/dL (80-116); MAGNESIUM 1.8 mg/dL (1.8-2.5); PROTEIN TOTAL,TP 5.9 g/dL (6.0-8.0); SODIUM,NA 141 mmol/L (135-145)
[2025-04-03 11:57] LABS: RED BLOOD CELL COUNT 2.99 x10(6)uL (3.90-5.90)
[2025-04-03] MEDS: Sodium Chloride 0.9% 10 ML Syringe FLUSH PRN (12:39)
[2025-04-03] MEDS: Meropenem 1 GM SDV IVPUSH SCH (12:40)
[2025-04-03] MEDS: VANCOmycin 1.25 GM/250 ML 1.25 GM in Premix Bag 1 BAG IV ONE (12:46)
[2025-04-04] MEDS ORDERED: VANCOmycin 1 GM/200 ML 1 GM in Premix Bag 1 BAG IV SCH (13:00)
== END 2025-04-03 15:09 | disposition critical access hospital (66) | DRG 559 ==
LOC: FB.MS 13:59
PROVIDERS: ADMIT Family Medicine; ATTEND Internal Medicine
DX: S72.001D Fracture of unspecified part of neck of right femur, subsequent encounter for closed fracture with routine healing (principal); J18.9 Pneumonia, unspecified organism; I13.0 Hypertensive heart and chronic kidney disease with heart failure and stage 1 through stage 4 chronic kidney disease, or unspecified chronic kidney disease; I69.354 Hemiplegia and hemiparesis following cerebral infarction affecting left non-dominant side; L97.429 Non-pressure chronic ulcer of left heel and midfoot with unspecified severity; L97.419 Non-pressure chronic ulcer of right heel and midfoot with unspecified severity; G93.40 Encephalopathy, unspecified; E78.5 Hyperlipidemia, unspecified; I25.10 Atherosclerotic heart disease of native coronary artery without angina pectoris; I50.9 Heart failure, unspecified; J44.9 Chronic obstructive pulmonary disease, unspecified; E11.22 Type 2 diabetes mellitus with diabetic chronic kidney disease; E11.51 Type 2 diabetes mellitus with diabetic peripheral angiopathy without gangrene; F17.210 Nicotine dependence, cigarettes, uncomplicated; L89.601 Pressure ulcer of unspecified heel, stage 1; Z66 Do not resuscitate; E11.40 Type 2 diabetes mellitus with diabetic neuropathy, unspecified; Y95 Nosocomial condition; W19.XXXD Unspecified fall, subsequent encounter; Z95.1 Presence of aortocoronary bypass graft; Z88.7 Allergy status to serum and vaccine; Z79.52 Long term (current) use of systemic steroids; Z79.82 Long term (current) use of aspirin; Z79.01 Long term (current) use of anticoagulants; Z79.84 Long term (current) use of oral hypoglycemic drugs; Z79.899 Other long term (current) drug therapy; I25.2 Old myocardial infarction; Z95.5 Presence of coronary angioplasty implant and graft; Z87.81 Personal history of (healed) traumatic fracture; Z98.49 Cataract extraction status, unspecified eye; Z98.890 Other specified postprocedural states; Z90.89 Acquired absence of other organs
CPT/HCPCS: 36415; 70450; 71045; 80053; 82947; 83735; 85025; 87040; 94150; 97161-GP; 99306; 99315; A9270-GY; J1650; J1956; J2185; J3372; U0002

== ENCOUNTER 2025-04-03 15:10 | Inpatient (IN) | payer MEDICARE ==
[2025-04-03] MEDS ORDERED: Nitroglycerin 0.4 MG Tab.SL SL PRN (15:43)
[2025-04-03] MEDS ORDERED: 50% Dextrose in Water 50 ML Syringe IVPUSH PRN (15:45)
[2025-04-03] MEDS ORDERED: Glucagon,Human Recombinant 1 MG Vial IM PRN (15:45)
[2025-04-03] MEDS ORDERED: Melatonin 3 MG Tab PO PRN (16:17)
[2025-04-03] MEDS: Insulin Lispro 100 Unit/ML 3 ML KwikPen SUBCUT SCH (18:36)
[2025-04-03] MEDS: Apixaban 5 MG Tab PO SCH (20:31)
[2025-04-03] MEDS: oxyCODONE 5 MG Tab PO PRN (20:32)
[2025-04-03] MEDS: Isosorbide Mononitrate 30 MG Tab.ER PO SCH (20:32)
[2025-04-03] MEDS: atorvaSTATin 20 MG Tab PO SCH (20:32)
[2025-04-03] MEDS: Meropenem 1 GM SDV IVPUSH SCH (23:02)
[2025-04-04 07:13] LABS: BASOPHILS ABSOLUTE AUTO 0.1 x10-3/uL (0.0-0.3); BASOPHILS PERCENT AUTO 0.7 % (0.3-3.8); EOSINOPHILS ABSOLUTE AUTO 0.1 x10-3/uL (0.0-0.6); EOSINOPHILS PERCENT AUTO 0.5 % (0.1-6.8); HEMATOCRIT 25.1 % (38.3-50.1); HEMOGLOBIN 8.4 g/dL (12.9-17.7); LYMPHOCYTES ABSOLUTE AUTO 1.3 x10-3/uL (0.5-4.5); LYMPHOCYTES PERCENT AUTO 14.1 % (15.8-45.3); MEAN CORPUSCULAR HEMOGLOBIN 30.3 pg (27.0-33.3); MEAN CORPUSCULAR HGB CONC 33.4 g/dL (28.7-35.3); MEAN CORPUSCULAR VOLUME 90.7 fL (80.8-98.7); MEAN PLATELET VOLUME 7.9 fL (6.7-11.0); MONOCYTES ABSOLUTE AUTO 0.7 x10-3/uL (0.0-1.2); MONOCYTES PERCENT AUTO 7.8 % (5.5-15.2); NEUTROPHILS ABSOLUTE AUTO 7.2 x10-3/uL (1.7-6.9); NEUTROPHILS PERCENT AUTO 76.9 % (40.3-71.8); PLATELET COUNT,PLT 214 x10(3)uL (117-477); RED CELL DISTRIBUTION WIDTH 16.9 % (12.4-15.0); WHITE BLOOD CELL COUNT,WBC 9.3 x10-3/uL (3.2-10.1)
[2025-04-04 07:22] LABS: A/G RATIO 0.7; ALANINE AMINOTRANSFERASE,ALT 11 U/L (12-36); ALBUMIN 2.2 g/dL (3.2-4.6); ALKALINE PHOSPHATASE 73 IU/L (56-112); ASPARTATE AMNIOTRANSFERASE,AST 20 IU/L (5-25); BILIRUBIN TOTAL 0.7 mg/dL (0.1-1.3); BLOOD UREA NITROGEN,BUN 33 mg/dL (7-18); BUN/CREATININE RATIO 20.6 (9-20); CALCIUM 8.3 mg/dL (8.6-10.2); CARBON DIOXIDE,CO2 26 mmol/L (21-32); CHLORIDE,CL 106 mmol/L (100-110); CREATININE 1.6 mg/dL (0.70-1.30); EST CRCL DRUG DOSING (CG) 33.94 mL/min; ESTIMATED GFR 44 mL/min (>60); GLUCOSE RANDOM 101 mg/dL (80-116); POTASSIUM,K 4.1 mmol/L (3.5-5.3); PROTEIN TOTAL,TP 5.5 g/dL (6.0-8.0); SODIUM,NA 139 mmol/L (135-145)
[2025-04-04 07:24] LABS: RED BLOOD CELL COUNT 2.77 x10(6)uL (3.90-5.90)
[2025-04-04] MEDS: Cyanocobalamin (Vitamin B12) 500 MCG Tab PO SCH (09:48)
[2025-04-04] MEDS: Aspirin 81 MG Tab.EC PO SCH (09:49)
[2025-04-04] MEDS: Folic Acid 1 MG Tab PO SCH (09:49)
[2025-04-04] MEDS: Isosorbide Mononitrate 30 MG Tab.ER PO SCH (09:51)
[2025-04-04] MEDS ORDERED: Benzonatate 100 MG Cap PO PRN (10:02)
[2025-04-04] MEDS: Sodium Chloride 0.9% 10 ML Syringe FLUSH PRN (12:07)
[2025-04-04] MEDS: VANCOmycin 1 GM/200 ML 1 GM in Premix Bag 1 BAG IV SCH (12:15)
[2025-04-04] MEDS: Acetaminophen 325 MG Tab PO PRN (21:15)
[2025-04-05 06:01] LABS: BASOPHILS ABSOLUTE AUTO 0.1 x10-3/uL (0.0-0.3); BASOPHILS PERCENT AUTO 0.8 % (0.3-3.8); EOSINOPHILS ABSOLUTE AUTO 0.1 x10-3/uL (0.0-0.6); EOSINOPHILS PERCENT AUTO 1.9 % (0.1-6.8); HEMOGLOBIN 8.7 g/dL (12.9-17.7); LYMPHOCYTES ABSOLUTE AUTO 1.7 x10-3/uL (0.5-4.5); LYMPHOCYTES PERCENT AUTO 22.3 % (15.8-45.3); MEAN CORPUSCULAR HEMOGLOBIN 30.4 pg (27.0-33.3); MEAN CORPUSCULAR HGB CONC 33.5 g/dL (28.7-35.3); MEAN CORPUSCULAR VOLUME 90.8 fL (80.8-98.7); MONOCYTES ABSOLUTE AUTO 0.6 x10-3/uL (0.0-1.2); MONOCYTES PERCENT AUTO 7.9 % (5.5-15.2); NEUTROPHILS ABSOLUTE AUTO 5.1 x10-3/uL (1.7-6.9); NEUTROPHILS PERCENT AUTO 67.1 % (40.3-71.8); PLATELET COUNT,PLT 231 x10(3)uL (117-477); RED CELL DISTRIBUTION WIDTH 17.3 % (12.4-15.0); WHITE BLOOD CELL COUNT,WBC 7.6 x10-3/uL (3.2-10.1)
[2025-04-05 06:11] LABS: BLOOD UREA NITROGEN,BUN 32 mg/dL (7-18); BUN/CREATININE RATIO 21.3 (9-20); CALCIUM 8.3 mg/dL (8.6-10.2); CARBON DIOXIDE,CO2 27 mmol/L (21-32); CHLORIDE,CL 107 mmol/L (100-110); CREATININE 1.5 mg/dL (0.70-1.30); ESTIMATED GFR 47 mL/min (>60); GLUCOSE RANDOM 103 mg/dL (80-116); SODIUM,NA 139 mmol/L (135-145)
[2025-04-05 06:21] LABS: RED BLOOD CELL COUNT 2.86 x10(6)uL (3.90-5.90)
[2025-04-05] MEDS ORDERED: Albuterol/Ipratropium 3.0-0.5 MG/3 ML Neb Soln NEB PRN (10:18)
[2025-04-06 06:37] LABS: BASOPHILS ABSOLUTE AUTO 0.1 x10-3/uL (0.0-0.3); EOSINOPHILS ABSOLUTE AUTO 0.2 x10-3/uL (0.0-0.6); EOSINOPHILS PERCENT AUTO 2.2 % (0.1-6.8); HEMATOCRIT 28.1 % (38.3-50.1); HEMOGLOBIN 9.4 g/dL (12.9-17.7); LYMPHOCYTES ABSOLUTE AUTO 1.7 x10-3/uL (0.5-4.5); LYMPHOCYTES PERCENT AUTO 23.3 % (15.8-45.3); MEAN CORPUSCULAR HEMOGLOBIN 30.4 pg (27.0-33.3); MEAN CORPUSCULAR HGB CONC 33.6 g/dL (28.7-35.3); MEAN CORPUSCULAR VOLUME 90.3 fL (80.8-98.7); MEAN PLATELET VOLUME 8.3 fL (6.7-11.0); MONOCYTES ABSOLUTE AUTO 0.5 x10-3/uL (0.0-1.2); MONOCYTES PERCENT AUTO 6.9 % (5.5-15.2); NEUTROPHILS ABSOLUTE AUTO 4.7 x10-3/uL (1.7-6.9); NEUTROPHILS PERCENT AUTO 66.6 % (40.3-71.8); PLATELET COUNT,PLT 264 x10(3)uL (117-477); RED CELL DISTRIBUTION WIDTH 16.8 % (12.4-15.0); WHITE BLOOD CELL COUNT,WBC 7.1 x10-3/uL (3.2-10.1)
[2025-04-06 06:44] LABS: BLOOD UREA NITROGEN,BUN 28 mg/dL (7-18); BUN/CREATININE RATIO 21.5 (9-20); CALCIUM 8.5 mg/dL (8.6-10.2); CARBON DIOXIDE,CO2 28 mmol/L (21-32); CHLORIDE,CL 106 mmol/L (100-110); CREATININE 1.3 mg/dL (0.70-1.30); EST CRCL DRUG DOSING (CG) 41.77 mL/min; ESTIMATED GFR 56 mL/min (>60); GLUCOSE RANDOM 101 mg/dL (80-116); POTASSIUM,K 4.1 mmol/L (3.5-5.3); SODIUM,NA 139 mmol/L (135-145)
[2025-04-06 11:41] LABS: TSH ULTRASENSITIVE 2.33 IU/mL (0.36-3.74)
[2025-04-06 11:45] LABS: BASE EXCESS VENOUS,POC 0 mmol/L (-2 - 3+); PCO2 VENOUS,POC 45 mmHg (41-51); PH VENOUS,POC 7.36 pH Units (7.32-7.43)
[2025-04-07 07:11] LABS: BASOPHILS ABSOLUTE AUTO 0.1 x10-3/uL (0.0-0.3); BASOPHILS PERCENT AUTO 1.2 % (0.3-3.8); EOSINOPHILS ABSOLUTE AUTO 0.2 x10-3/uL (0.0-0.6); EOSINOPHILS PERCENT AUTO 2.8 % (0.1-6.8); HEMATOCRIT 27.7 % (38.3-50.1); HEMOGLOBIN 9.3 g/dL (12.9-17.7); LYMPHOCYTES ABSOLUTE AUTO 1.9 x10-3/uL (0.5-4.5); LYMPHOCYTES PERCENT AUTO 25.9 % (15.8-45.3); MEAN CORPUSCULAR HEMOGLOBIN 30.3 pg (27.0-33.3); MEAN CORPUSCULAR HGB CONC 33.7 g/dL (28.7-35.3); MEAN CORPUSCULAR VOLUME 89.9 fL (80.8-98.7); MEAN PLATELET VOLUME 8.3 fL (6.7-11.0); MONOCYTES ABSOLUTE AUTO 0.8 x10-3/uL (0.0-1.2); MONOCYTES PERCENT AUTO 10.3 % (5.5-15.2); NEUTROPHILS ABSOLUTE AUTO 4.4 x10-3/uL (1.7-6.9); NEUTROPHILS PERCENT AUTO 59.8 % (40.3-71.8); PLATELET COUNT,PLT 247 x10(3)uL (117-477); RED CELL DISTRIBUTION WIDTH 16.8 % (12.4-15.0); WHITE BLOOD CELL COUNT,WBC 7.4 x10-3/uL (3.2-10.1)
[2025-04-07 07:19] LABS: BLOOD UREA NITROGEN,BUN 25 mg/dL (7-18); BUN/CREATININE RATIO 20.8 (9-20); CALCIUM 8.5 mg/dL (8.6-10.2); CARBON DIOXIDE,CO2 27 mmol/L (21-32); CHLORIDE,CL 105 mmol/L (100-110); CREATININE 1.2 mg/dL (0.70-1.30); EST CRCL DRUG DOSING (CG) 45.25 mL/min; ESTIMATED GFR 62 mL/min (>60); GLUCOSE RANDOM 102 mg/dL (80-116); POTASSIUM,K 4.1 mmol/L (3.5-5.3); SODIUM,NA 138 mmol/L (135-145)
[2025-04-07 07:24] LABS: RED BLOOD CELL COUNT 3.08 x10(6)uL (3.90-5.90)
[2025-04-07 16:26] LABS: STREPTOCOCCUS PNEUMONIAE AG,UR Negative (Negative)
[2025-04-07 23:21] LABS: LEGIONELLA PNEUMOPHILA AG,URN Negative (Negative)
[2025-04-08 07:04] LABS: BASOPHILS ABSOLUTE AUTO 0.1 x10-3/uL (0.0-0.3); EOSINOPHILS ABSOLUTE AUTO 0.2 x10-3/uL (0.0-0.6); EOSINOPHILS PERCENT AUTO 2.9 % (0.1-6.8); HEMATOCRIT 27.9 % (38.3-50.1); HEMOGLOBIN 9.5 g/dL (12.9-17.7); LYMPHOCYTES ABSOLUTE AUTO 1.7 x10-3/uL (0.5-4.5); LYMPHOCYTES PERCENT AUTO 21.6 % (15.8-45.3); MEAN CORPUSCULAR HEMOGLOBIN 30.7 pg (27.0-33.3); MEAN CORPUSCULAR HGB CONC 34.2 g/dL (28.7-35.3); MEAN CORPUSCULAR VOLUME 89.7 fL (80.8-98.7); MEAN PLATELET VOLUME 8.4 fL (6.7-11.0); MONOCYTES ABSOLUTE AUTO 0.6 x10-3/uL (0.0-1.2); MONOCYTES PERCENT AUTO 7.5 % (5.5-15.2); NEUTROPHILS ABSOLUTE AUTO 5.3 x10-3/uL (1.7-6.9); PLATELET COUNT,PLT 260 x10(3)uL (117-477); RED CELL DISTRIBUTION WIDTH 16.7 % (12.4-15.0); WHITE BLOOD CELL COUNT,WBC 7.9 x10-3/uL (3.2-10.1)
[2025-04-08 07:12] LABS: BLOOD UREA NITROGEN,BUN 25 mg/dL (7-18); BUN/CREATININE RATIO 22.7 (9-20); CALCIUM 8.5 mg/dL (8.6-10.2); CARBON DIOXIDE,CO2 29 mmol/L (21-32); CHLORIDE,CL 104 mmol/L (100-110); CREATININE 1.1 mg/dL (0.70-1.30); EST CRCL DRUG DOSING (CG) 49.36 mL/min; ESTIMATED GFR 68 mL/min (>60); GLUCOSE RANDOM 95 mg/dL (80-116); POTASSIUM,K 4.1 mmol/L (3.5-5.3); SODIUM,NA 139 mmol/L (135-145)
[2025-04-08 07:18] LABS: RED BLOOD CELL COUNT 3.11 x10(6)uL (3.90-5.90)
[2025-04-08] MEDS: Sodium Chloride 0.9% 500 ML IV ONE (10:00)
[2025-04-08] MEDS ORDERED: HYDROmorphone 2 MG/ML SDV IVPUSH PRN (14:17)
[2025-04-09] MEDS: Isosorbide Mononitrate 30 MG Tab.ER PO SCH (21:18)
== END 2025-04-14 10:40 | DRG 193 ==
LOC: FB.MS 15:10
PROVIDERS: ADMIT Internal Medicine; ATTEND Family Medicine
DX: J18.9 Pneumonia, unspecified organism (principal); G93.41 Metabolic encephalopathy; I50.42 Chronic combined systolic (congestive) and diastolic (congestive) heart failure; I13.0 Hypertensive heart and chronic kidney disease with heart failure and stage 1 through stage 4 chronic kidney disease, or unspecified chronic kidney disease; J44.1 Chronic obstructive pulmonary disease with (acute) exacerbation; J44.0 Chronic obstructive pulmonary disease with (acute) lower respiratory infection; Z51.5 Encounter for palliative care; Z66 Do not resuscitate; I25.10 Atherosclerotic heart disease of native coronary artery without angina pectoris; E11.51 Type 2 diabetes mellitus with diabetic peripheral angiopathy without gangrene; L89.159 Pressure ulcer of sacral region, unspecified stage; L89.629 Pressure ulcer of left heel, unspecified stage; L89.619 Pressure ulcer of right heel, unspecified stage; Z96.642 Presence of left artificial hip joint; I48.91 Unspecified atrial fibrillation; E11.22 Type 2 diabetes mellitus with diabetic chronic kidney disease; G83.81 Brown-Sequard syndrome; I95.1 Orthostatic hypotension; D63.1 Anemia in chronic kidney disease; E11.40 Type 2 diabetes mellitus with diabetic neuropathy, unspecified; I65.23 Occlusion and stenosis of bilateral carotid arteries; E78.5 Hyperlipidemia, unspecified; Z90.89 Acquired absence of other organs; Z98.49 Cataract extraction status, unspecified eye; Z98.890 Other specified postprocedural states; Z88.7 Allergy status to serum and vaccine; Z79.84 Long term (current) use of oral hypoglycemic drugs; Z79.01 Long term (current) use of anticoagulants; S72.012D Unspecified intracapsular fracture of left femur, subsequent encounter for closed fracture with routine healing; I25.2 Old myocardial infarction; Z95.1 Presence of aortocoronary bypass graft; Z95.5 Presence of coronary angioplasty implant and graft; Z87.81 Personal history of (healed) traumatic fracture; Z79.899 Other long term (current) drug therapy; Z79.82 Long term (current) use of aspirin; I69.344 Monoplegia of lower limb following cerebral infarction affecting left non-dominant side; Z72.0 Tobacco use; W18.30XD Fall on same level, unspecified, subsequent encounter
CPT/HCPCS: 36415; 80048; 80053; 80202; 82607; 82947; 84443; 85025; 87449; 87899; 94150; 97112-GP; 97161-GP; 97166-GO; 97535-GO; 99222; 99231; 99232; 99233; 99239; A9270-GY; J1815; J2185; J3372; J7040